=== PATIENT | female | born 1970 | race Hispanic/Latino ===

== ENCOUNTER → 2017-12-11 | Day surgery (SDC) | payer OTHER ==
[2017-12-07 09:45] LABS: BASOPHILS # (AUTO) 0.1 (0.0-0.1); BASOPHILS % 0.6 % (0.0-1.0); EOSINOPHILS # (AUTO) 0.2 (0.0-0.4); HEMOGLOBIN 14.5 g/dL (12.0-16.0); LYMPHOCYTES # (AUTO) 2.3 (1.0-3.2); LYMPHOCYTES % 24.4 % (18.0-39.1); MEAN CORPUSCULAR HGB CONC 33.7 g/dL (31-35); MONOCYTES # (AUTO) 0.5 (0.2-0.8); MONOCYTES % 4.8 % (4.4-11.3); NEUTROPHILS # (AUTO) 6.4 (2.1-6.9); NEUTROPHILS % 67.3 % (38.7-80.0); PLATELET COUNT 198 x10e3/uL (140-360); RED BLOOD COUNT 4.83 x10e6/uL (3.6-5.1); RED CELL DISTRIBUTION WIDTH 11.9 % (11.7-14.4)
[~2017-12-11] MED LIST: EPHEDRINE SULFATE INJ 50 MG/10 ML SYR ONE; FENTANYL CITRATE/PF 100MCG/2 ML INJ ONE; GLUCAGON FOR INJ 1 MG VIAL ONE; HYOSCYAMINE SULFATE 0.5 MG/ML AMP ONE; MIDAZOLAM HCL 2 MG/2 ML VIAL ONE; PROPOFOL IV EMULSION 10 MG/ML 50 ML VIAL ONE
--- NOTE | 2017-12-11 14:47 | Operative Report ---
DATE OF PROCEDURE: December 11, 2017 REFERRING PHYSICIAN: Ana Lilia Higgins MD PROCEDURES PERFORMED 1. Esophagogastroduodenoscopy with biopsies and esophageal dilatation. 2. Colonoscopy with polypectomy. INDICATIONS FOR EGD: Dysphagia to solids. History of heartburn and indigestion. INDICATIONS FOR COLONOSCOPY: Lower abdominal pain, history of bright red blood per rectum. MEDICATION: Patient was done under MAC. Please see anesthesiologist's note. PROCEDURE: With the patient in the left lateral decubitus position, the flexible fiberoptic Olympus gastroscope was introduced into the esophagus under direct visualization without any difficulty. There was some patchy erythema noted in the distal esophagus. Minute tongues of velvety red mucosa were noted to extend proximally from the GE junction, and biopsies were obtained to rule out Ignacio's. There was a mild stricture noted at the GE junction that was dilated to a size 52-L[place] Morales. The scope was then advanced with ease into the stomach, and mucosa overlying the antrum and the body revealed some patchy erythema and low-grade to moderate edema, and biopsies were obtained and sent to stain for H. pylori. Minute hyperplastic-appearing polyps were noted in the body, and some were partially excised with cold biopsy forceps. Pylorus appeared to be of normal contour and shape. It was intubated with ease, and the scope was advanced all the way to the 2nd portion of the duodenum. The scope was then withdrawn slowly. Mucosa overlying the proximal 2nd portion and the duodenal bulb appeared to be within normal limits. The scope was then withdrawn back into the stomach and retroflexed. The mucosa overlying the fundus and the cardia appeared to be within normal limits. The scope was then straightened out. It was subsequently withdrawn. Patient tolerated the procedure well. ASSESSMENT 1. Distal esophagitis. 2. Rule out Ignacio's esophagus. 3. Esophageal stricture at gastroesophageal junction dilated to size 52-L[place] Morales. 4. Gastritis, biopsied. Biopsies sent to stain for H. pylori. 5. Gastric polyps, some partially excised with cold biopsy forceps. PLAN: Follow up histology. Initiate Protonix 40 mg 1 p.o. q.a.m. a.c. The patient was then turned around. After adequate lubrication of the anal canal, a flexible fiberoptic Olympus colonoscope was inserted into the rectum with ease and advanced all the way to the cecum. It was then withdrawn slowly. Mucosa overlying the cecum and ascending colon appeared to be within normal limits. One polyp was snared from the proximal transverse colon. The rest of the transverse, descending, sigmoid and rectum appeared to be within normal limits. The scope was then retroflexed into the distal rectum, and moderate-size internal hemorrhoids were noted, none of which was actively bleeding. The scope was then straightened out. It was subsequently withdrawn. Patient tolerated the procedure well. IMPRESSION 1. Transverse colon polyp, snared. 2. Internal hemorrhoids, none actively bleeding. PLAN: Follow up histology. Initiate high-fiber, low-fat diet. Initiate high-fiber supplement. Start VSL #3 DS 1 p.o. daily. Patient might benefit from a followup colonoscopy in 3 to 5 years. Job#: [id number] cc:ANA LILIA HIGGINS MD
== END | disposition home or self-care (01) ==
LOC: OR 09:43
PROVIDERS: ATTEND Internal Medicine Gastroenterology
DX: K29.70 Gastritis, unspecified, without bleeding (principal); K63.5 Polyp of colon; K31.7 Polyp of stomach and duodenum; K22.2 Esophageal obstruction; K21.9 Gastro-esophageal reflux disease without esophagitis; K20.9 Esophagitis, unspecified; K64.8 Other hemorrhoids; Z01.812 Encounter for preprocedural laboratory examination; Z68.33 Body mass index [BMI] 33.0-33.9, adult
CPT/HCPCS: 36415; 43239; 43450; 45385; 81025; 85025; J1610; J1980; J2250; 45378

== ENCOUNTER → 2018-01-15 | Outpatient (CLI) | payer OTHER ==
--- NOTE | 2018-01-15 15:03 | Diagnostic Imaging Report ---
PROCEDURE:X-RAY MODIFIED BARIUM SWALLOW COMPARISON:None. INDICATIONS:Not provided. DISCUSSION:Fluoroscopic examination was performed in conjunction with speech pathology, during swallowing of a variety of thin and thick liquid consistencies. Fluoroscopic time: 1:06 Cumulative area dose product: 82.81 cGycm2 Findings: Premature spillage to the vallecula with all consistencies. Delayed initiation of swallow. Residua in the vallecula, pyriform sinus, pharyngeal wall with all consistencies. No penetration or aspiration. CONCLUSION:No penetration or aspiration. Please see the report from speech pathology for complete details. Dictated by: [place] Lauren M.D. on 01/15/2018 at 15:08 Electronically approved by: [place] Lauren M.D. on 01/15/2018 at 15:08
== END ==
LOC: DX 09:07
PROVIDERS: ATTEND Internal Medicine Gastroenterology
DX: R13.10 Dysphagia, unspecified (principal)
CPT/HCPCS: 74230; 81025